=== PATIENT | female | born 1965 | race African-American/Black ===

== ENCOUNTER 2022-05-28 07:48 | Emergency (ER) | payer MEDICARE, BC ==
[~2022-05-28] VITALS: Ht 165.1 cm; Wt 102.0 kg
[2022-05-28] MEDS ORDERED: T3 PO (09:22)
[2022-05-28] MEDS ORDERED: PROPOFOL 200MG/20ML VIAL IV ONE (09:30)
[2022-05-28] MEDS ORDERED: ONDANSETRON HCL 4MG/2ML INJ IV ONE (09:30)
[2022-05-28] MEDS ORDERED: KETAMINE HCL 50 MG/ML 10ML IV ONE (09:30)
[2022-05-28 13:40] VITALS: BP 165/77
== END 2022-05-28 13:41 | disposition home or self-care (01) ==
LOC: ER 08:14
DX: S82.392A Other fracture of lower end of left tibia, initial encounter for closed fracture (principal); S82.832A Other fracture of upper and lower end of left fibula, initial encounter for closed fracture; E11.22 Type 2 diabetes mellitus with diabetic chronic kidney disease; N18.6 End stage renal disease; Z91.041 Radiographic dye allergy status; Z99.2 Dependence on renal dialysis; W01.0XXA Fall on same level from slipping, tripping and stumbling without subsequent striking against object, initial encounter; Y93.89 Activity, other specified; Y92.538 Other ambulatory health services establishments as the place of occurrence of the external cause; Y99.8 Other external cause status
CPT/HCPCS: 73600; 96374; 99152; 99285; J2405; J2704; J3490